=== PATIENT | female | born 1960 | race Caucasian/White ===

== ENCOUNTER 2018-06-10 19:32 | Observation (INO) ==
[2018-06-10] MEDS ORDERED: Ipratropium/Albuterol Neb 3 ML IH ONE (19:46)
--- NOTE | 2018-06-10 19:53 | Emergency Department Note ---
Disposition Clinical Impression: Aspiration pneumonia, Respiratory failure with hypercapnia, Hyperglycemia Disposition: Admitted As Inpatient Condition: Critical Time of Disposition: 18:30 SOB HPI - General Chief Complaint: ED Shortness of Breath/Dyspnea Stated Complaint: eating and choked Time Seen by Provider: 06/10/18 19:42 Source: family Mode of arrival: EMS Limitations: altered mental status, physical limitation Nursing Notes Reviewed: Yes Vital Signs Reviewed: Yes - History of Present Illness According to the the patient was eating and choked on some venison. He got a little bit up when she is trying to sip some water but then started having problems again so brought her to the emergency department. Upon arrival her sats were 78%. She had agonal respirations. Pt Subjective Complaint: shortness of breath Onset (ago): Just TELEPATHIST Severity: severe Consistency/Duration: constant Improves with: nothing Worsens with: nothing - Related Data Home Medications Medication Instructions Recorded Confirmed Erythromycin Base/Ethanol 30 gm TP DAILY 06/10/18 06/10/18 [Erythromycin 2% Gel] MethylPREDNISolone 4 mg PO DAILY 06/10/18 06/10/18 [MethylPREDNISolone Dose Pack] MethylPREDNISolone 4 mg PO DAILY 06/10/18 06/10/18 [MethylPREDNISolone Dose Pack] Allergies Allergy/AdvReac Type Severity Reaction Status Date / Time No Known Allergies Allergy Verified 06/10/18 19:51 Review of Systems: Review of systems obtained from the patient's as she is unable to provide it. She had been doing well but getting weaker. She was eating venison this evening and started to choke on it. He gave her of sips of water and she got most of it up he thinks. She had been getting weaker over the last few days. She is a DNR according to her and they do not want anything heroic done All systems ED: reviewed and negative except as stated. Constitutional: Denies: fever, chills, weakness, weight change Eyes: Denies: eye pain, eye discharge, vision change ENT ED: Denies: ear pain, throat pain, dental pain, hearing loss, epistaxis, congestion, dysphagia Cardiovascular: Denies: chest pain, palpitations, dyspnea on exertion, edema, syncope Respiratory: Reports: as per HPI Gastrointestinal: Denies: abdominal pain, nausea, vomiting, diarrhea, constipation, hematemesis, melena, hematochezia Genitourinary: Denies: dysuria, frequency, hematuria, discharge Musculoskeletal: Denies: back pain, neck pain, arthralgia, myalgia Integumentary: Denies: rash, abrasion, lesions Neurological: Denies: headache, weakness, numbness, paresthesias, confusion, abnormal gait, vertigo Psychiatric: Denies: anxiety, depression, suicidal thoughts, homicidal thoughts, auditory hallucinations, visual hallucinations Endocrine: Denies: fatigue Hematological/Lymphatic: Denies: easy bleeding, easy bruising Allergic/Immunologic: Denies: facial swelling, urticaria Past Medical History - Past Medical History Attestation: Yes The following information was validated with the patient. Source: patient, nursing notes reviewed Physical Exam - General Limitations: altered mental status, physical limitation General appearance: in distress - Head Head exam: atraumatic, normocephalic, normal inspection - Eye Eye exam: Present: conjunctival injection - ENT ENT exam: normal exam, normal oropharynx, mucous membranes moist - Neck Neck exam: Present: normal inspection, full ROM, trachea midline - Chest Chest inspection: Present: normal inspection - Respiratory Respiratory exam: Present: other (diminished throughout) - Cardiovascular Cardiovascular exam: Present: regular rate, normal rhythm Course Vital Signs Pulse Rate 85 06/10/18 19:34 Respiratory Rate 15 06/10/18 19:34 Blood Pressure 130/79 06/10/18 19:34 O2 Sat by Pulse Oximetry 78 06/10/18 19:34 Pulse Rate 85 06/10/18 19:34 Respiratory Rate 15 06/10/18 19:34 Blood Pressure 130/79 06/10/18 19:34 O2 Sat by Pulse Oximetry 78 06/10/18 19:34 Oxygen Delivery Oxygen Delivery Non Rebreather Mask Shortness of Breath/Dyspnea - [facility] Narrative Medical decision making narrative: I discussed case with Dr. Samaniego he is graciously accepted admission to hospital I reviewed the patient's medication list - Lab Data Lab results reviewed: Yes I reviewed the patient's lab results. - Radiology Data Radiology results reviewed: Yes I reviewed the patient's radiology results.
[2018-06-10 20:01] LABS: ABG PCO2 > 150 mmHg (35-45); ABG PH 6.65 pH Units (7.32-7.45); ABG PO2 93 mmHg (85-104)
[2018-06-10] MEDS ORDERED: cefTRIAXone 2,000 MG in 0.9 % Sodium Chloride Mini Bag 100 ML IVPB ONE (20:23)
[2018-06-10 20:37] LABS: Hematocrit 44.7 % (35.3-44.9); Hemoglobin 13.3 g/dL (11.5-15.4); Mean Corpuscular HGB Conc 29.8 g/dL (31.6-35.5); Mean Corpuscular Hemoglobin 31.1 pg (28.0-33.3); Mean Corpuscular Volume 104.4 fL (83.0-100.0); Mean Platelet Volume 9.8 fL (9.4-12.4); Platelet Count 308 K/mcL (140-400); Red Blood Count 4.28 M/mcL (3.82-4.97); Red Cell Distribution Width 15.8 % (11.5-14.5)
[2018-06-10] MEDS ORDERED: Ipratropium/Albuterol Neb 3 ML IH SCH ×2 (20:45)
[2018-06-10] MEDS: Ipratropium/Albuterol Neb 3 ML IH SCH ×3 (21:00→21:55)
[2018-06-10 21:11] LABS: BUN/Creatinine Ratio 29 (6-26); Blood Urea Nitrogen 23 mg/dL (6-20); Carbon Dioxide 21 mEq/L (23-29); Chloride 101 mEq/L (98-107); Glucose 511 mg/dL (70-105); Osmolality,Calculated 309 (280-300); Potassium 4.8 mEq/L (3.5-5.1); Sodium 136 mEq/L (136-145); eGFR For Non-African Americans > 60 (> 60)
[2018-06-10] MEDS ORDERED: Insulin LISPRO 300 UNITS/3 ML VIAL SQ ONE (21:13)
[2018-06-10 21:18] LABS: Eosinophils # 0.4 K/mcL (0.0-0.6); Lymphocytes # 5.7 K/mcL (0.6-4.6); Monocytes # 1.1 K/mcL (0.0-1.3); Neutrophils # 9.5 K/mcL (1.6-8.9)
[2018-06-10 21:19] LABS: Macrocytosis Present (Not Present); Platelet Estimate Normal (Normal); Polychromasia 1+ (Not Present)
[2018-06-10 21:54] VITALS: BP 118/79
--- NOTE | 2018-06-15 12:13 | Internal Med History&Physical ---
Date of Encounter: 06/15/18 Time of Encounter: 12:07 Internal Medicine - H&P: HPI Chief complaint: Choking, dyspnea Admitted From: Emergency Dept History of present illness: Ms. Castrejon is a 58 year old female who came to emergency room after having achoking episode at home while eating. She was found to have leukocytosis with bandemia and acute respiratory failure. Because of end-stage breast cancer family did not want aggressive intervention. She was admitted to [facility] floor with comfort care orders. Past Med Surg Social Fam HX - Past Medical History Medical history: cancer, other Additional medical history: Hx of breast cancer found at stage 4 and has spread to brain., blind left eye, tumor on brain, Hx of SVT Psychiatric history: no psych history - Past Surgical History Additional surgical history: ablasion to heart - Social History Smoking Status: Smoker, status unknown Smokeless Tobacco Status: No Alcohol use: none Drug use: none Internal Medicine - H&P: Meds Erythromycin Base/Ethanol [Erythromycin 2% Gel] 30 gm TP DAILY 06/10/18 [History] MethylPREDNISolone [MethylPREDNISolone Dose Pack] 4 mg PO DAILY 06/10/18 [History] MethylPREDNISolone [MethylPREDNISolone Dose Pack] 4 mg PO DAILY 06/10/18 [History] Allergy/AdvReac Type Severity Reaction Status Date / Time No Known Allergies Allergy Verified 06/10/18 19:51 All Systems PM: A 10-system review of systems was performed and is negative for pertinent findings except as documented above in the HPI. - Constitutional Vitals: Temp Pulse Resp BP Pulse Ox 97.0 F L 86 20 118/79 62 06/10/18 21:51 06/10/18 21:51 06/10/18 21:55 06/10/18 21:51 06/10/18 21:55 Internal Med - H&P Results - Labs CBC & Chem 7: 06/10/18 20:29 06/10/18 20:29 - ABG Interpretation ABG results: 06/10/18 19:55 ABG pH 6.65 L* ABG pCO2 > 150 H* ABG pO2 93 ABG HCO3 TNP ABG Total CO2 TNP ABG O2 Saturation TNP ABG Base Excess TNP - Impressions ITS Impressions Chest X-Ray 06/10/18 19:44 IMPRESSION: Masslike opacity in the left upper lung is suspicious for a primary pulmonary neoplasm. Additional hilar prominence, although ill-defined, could indicate lymphadenopathy. Recommend dedicated CT chest with contrast. Background of bilateral airspace disease which could reflect pulmonary edema with or without infection. Pleural effusions present. D/ / Dale Ibanez / Dale Ibanez Interpreting Provider: Dale Ibanez
--- NOTE | 2018-06-15 12:22 | Discharge Summary ---
Orders not resulted at time of discharge: Pending orders 06/10/18 20:29 Culture,Blood [BC] Stat Date of Encounter: 06/15/18 Time of Encounter: 12:07 - Discharge Diagnosis (1) Respiratory failure with hypercapnia Priority: Primary Status: Acute Qualifiers: Chronicity: acute Qualified Code(s): J96.02 - Acute respiratory failure with hypercapnia (2) Aspiration pneumonia Priority: Secondary Status: Acute Qualifiers: Aspiration pneumonia type: unspecified Laterality: unspecified laterality Lung location: unspecified part of lung Qualified Code(s): J69.0 - Pneumonitis due to inhalation of food and vomit Hospital course: Ms. Castrejon is a 58 year old female who came to emergency room after having achoking episode at home while eating. She was found to have leukocytosis with bandemia and acute respiratory failure. Because of end-stage breast cancer family did not want aggressive intervention. [facility] She continued to decline rapidly and was found to be without pulse or respirations and was pronounced at 2217. - Time Spent with Patient Total time spent providing and/or coordinating discharge services: - Discharge Medications Home Medications: Erythromycin Base/Ethanol [Erythromycin 2% Gel] 30 gm TP DAILY 06/10/18 [History] MethylPREDNISolone [MethylPREDNISolone Dose Pack] 4 mg PO DAILY 06/10/18 [History] MethylPREDNISolone [MethylPREDNISolone Dose Pack] 4 mg PO DAILY 06/10/18 [History] Allergies/Adverse Reactions: Allergy/AdvReac Type Severity Reaction Status Date / Time No Known Allergies Allergy Verified 06/10/18 19:51 Date of admission: 06/10/18 20:58 Primary care physician: Esteban Moraes MD - Constitutional Vitals: Temp Pulse Resp BP Pulse Ox 97.0 F L 86 20 118/79 62 06/10/18 21:51 06/10/18 21:51 06/10/18 21:55 06/10/18 21:51 06/10/18 21:55 - Patient Status Disposition: Condition: Critical - Discharge Instructions Follow Up With: Esteban Moraes MD [Primary Care Provider] -
== END 2018-06-11 01:31 | disposition expired ==
LOC: EMEROOPIK 19:32 → INPPIK 19:32
PROVIDERS: ADMIT Internal Medicine; ATTEND Internal Medicine